=== PATIENT | male | born 1950 | race Caucasian/White ===

== ENCOUNTER 2018-07-02 12:06 | Emergency (ER) | payer OTHER, MEDICARE, SELFPAY ==
[2018-07-02 12:21] VITALS: BP 136/75; PULSE 70; RESP 18; TEMP 36.5; O2SAT 97; BMI 35.2
--- NOTE | 2018-07-02 12:31 | DI.RAD.S_ITS ---
PROCEDURE: XR CHEST 2V INDICATIONS: productive cough TECHNIQUE: 2 views of the chest were acquired. COMPARISON: None. FINDINGS: Surgical changes and devices: None. Lungs and pleura: Vague increased density appears to be present at the left lung base without lobar consolidation. No large effusion or pneumothorax is evident. Mediastinum: Mediastinal contours are normal. Heart size is normal. Bones and chest wall: No suspicious bony abnormalities. Soft tissues appear unremarkable. IMPRESSION: Possible developing left basilar pneumonia. Please correlate clinically. Dictated by: Familia Montalvo M.D. on 07/02/2018 at 12:16 Approved by: Familia Montalvo M.D. on 07/02/2018 at 12:18
--- NOTE | 2018-07-02 12:35 | ED_ITS ---
HPI - URI/Sore Throat <BELINDA Arevalo - Last Filed: 07/02/18 15:30> General Chief Complaint: Upper Respiratory Symptoms Stated Complaint: thinks he has bronchitis Time Seen by Provider: 07/02/18 12:21 Source: patient Mode of arrival: ambulatory Limitations: no limitations History of Present Illness HPI Narrative: The patient is a 68-year-old male former smoker with history of pneumonia who presents with a chief complaint of a productive cough for 3 days. He states he started with a sore throat and nasal congestion, developed postnasal drip and now has a productive cough. He complains of wheezing. He has tried using his inhalers, [id number] Robitussin, and take Sudafed for his allergies. He denies any fevers nausea vomiting diarrhea or abdominal pain. he states he is concerned because a few years ago he had a cough like this, that later developed into pneumonia. Related Data Previous Rx's Medication Instructions Recorded doxycycline hyclate 100 mg PO BID #20 cap 07/02/18 Allergies Allergy/AdvReac Type Severity Reaction Status Date / Time No Known Drug Allergies Allergy Verified 07/02/18 12:21 Review of Systems <BELINDA Arevalo - Last Filed: 07/02/18 15:30> Review of Systems GENERAL: Denies chills, fatigue, malaise, fever, sweats. HEENT: See HPI RESPIRATORY: See HPI CARDIOVASCULAR: Denies chest pain, palpitations, orthopnea, edema, GASTROINTESTINAL: Denies nausea, vomiting, abdominal pain, diarrhea, constipation, melena. : Denies dysuria, frequency, incontinence, hematuria, urinary retention. MUSCULOSKELETAL: denies weakness, joint pain, or bony pain SKIN: Denies rash, skin lesions, or other NEUROLOGIC: Denies weakness, headache, numbness, change in speech, confusion, seizures, incoordination. PSYCHIATRIC: No concerning psychosocial issues. 12 point review of systems is negative except for those stated above PFSH <BELINDA Arevalo - Last Filed: 07/02/18 15:30> Medical History (Updated 07/02/18 @ 13:32 by BELINDA Arevalo) History of pneumonia (Acute) Obesity (Acute) Social History (Updated 07/02/18 @ 13:30 by BELINDA Arevalo) Smoking Status: Former smoker Social History (Updated 07/02/18 @ 13:30 by BELINDA Arevalo) Smoking Status: Former smoker Exam <BELINDA Arevalo - Last Filed: 07/02/18 15:30> Narrative Exam Narrative: GENERAL: This is a well-nourished, well-developed patient, in no acute distress HEAD: Atraumatic. Normocephalic. No temporal or scalp tenderness. EYES: Pupils equal round and reactive. Extraocular motions intact. No scleral icterus. No injection or drainage. ENT: Nose without bleeding, purulent drainage or septal hematoma. Throat without erythema, tonsillar hypertrophy or exudate. Uvula midline. Airway patent. cobblestoning noted. NECK: Trachea midline. No JVD or lymphadenopathy. Supple, nontender, no meningeal signs. CARDIOVASCULAR: Regular rate and rhythm RESPIRATORY: Diffuse expiratory wheeze on auscultation. No increased respiratory effort. No accessory muscle use. No stridor. No crackles. GASTROINTESTINAL: Abdomen soft, non-tender, nondistended. No hepato- splenomegaly, or palpable masses. No guarding. EXTREMITIES: No clubbing, cyanosis, or edema. No joint tenderness, effusion, or edema noted. BACK: Nontender without deformity or crepitance. No flank tenderness. NEURO: AOx3. SKIN: No rash or erythema. Initial Vital Signs Initial Vital Signs: Vital Signs Temperature 97.7 F 07/02/18 12:21 Pulse Rate 70 07/02/18 12:21 Respiratory Rate 18 07/02/18 12:21 Blood Pressure 136/75 07/02/18 12:21 Pulse Oximetry 97 07/02/18 12:21 <Jaya Stauffer DO - Last Filed: 07/02/18 18:31> Initial Vital Signs Initial Vital Signs: Vital Signs Temperature 97.7 F 07/02/18 12:21 Pulse Rate 70 07/02/18 12:21 Respiratory Rate 18 07/02/18 12:21 Blood Pressure 136/75 07/02/18 12:21 Pulse Oximetry 97 07/02/18 12:21 Course <BELINDA Arevalo - Last Filed: 07/02/18 15:30> Orders Ordered: ED Orders 07/02/18 12:31 XR chest 2V Stat 07/02/18 12:38 RT Consult Eval and Treat Now Discontinued Medications Albuterol/Ipratropium (Duoneb) 3 ml INH NOW ONE Stop: 07/02/18 12:32 Last Admin: 07/02/18 12:55 Dose: 3 ml Vital Signs - 8 hr 07/02/18 12:21 07/02/18 12:55 07/02/18 13:31 Temperature 97.7 F Pulse Rate 70 73 Respiratory Rate 18 14 Blood Pressure 136/75 Pulse Oximetry 97 98 98 07/02/18 13:42 Temperature 97.6 F Pulse Rate 77 Respiratory Rate 21 Blood Pressure 138/67 Pulse Oximetry 95 <Jaya Stauffer DO - Last Filed: 07/02/18 18:31> Orders Ordered: ED Orders 07/02/18 12:31 XR chest 2V Stat 07/02/18 12:38 RT Consult Eval and Treat Now Discontinued Medications Albuterol/Ipratropium (Duoneb) 3 ml INH NOW ONE Stop: 07/02/18 12:32 Last Admin: 07/02/18 12:55 Dose: 3 ml Vital Signs - 8 hr 07/02/18 12:21 07/02/18 12:55 07/02/18 13:31 Temperature 97.7 F Pulse Rate 70 73 Respiratory Rate 18 14 Blood Pressure 136/75 Pulse Oximetry 97 98 98 07/02/18 13:42 Temperature 97.6 F Pulse Rate 77 Respiratory Rate 21 Blood Pressure 138/67 Pulse Oximetry 95 MDM - URI/Sore Throat <BELINDA Arevalo - Last Filed: 07/02/18 15:30> Imaging Data Chest x-ray: Radiologist's impression: [address] [address] XRay Report Signed Patient: Damien Fishman [facility]#: [id number] : 9Acct:[id number] Age/Sex: 68 / MDate of Service: 07/02/18 Loc: ED Accession Number: [id number] Procedure: XR chest 2V Ordering Provider: Susie Wallace PROCEDURE: XR CHEST 2V INDICATIONS: productive cough TECHNIQUE: 2 views of the chest were acquired. COMPARISON: None. FINDINGS: Surgical changes and devices: None. Lungs and pleura: Vague increased density appears to be present at the left lung base without lobar consolidation. No large effusion or pneumothorax is evident. Mediastinum: Mediastinal contours are normal. Heart size is normal. Bones and chest wall: No suspicious bony abnormalities. Soft tissues appear unremarkable. IMPRESSION: Possible developing left basilar pneumonia. Please correlate clinically. Dictated by: Familia Montalvo M.D. on 07/02/2018 at 12:16 Approved by: Familia Montalvo M.D. on 07/02/2018 at 12:18 [facility] Narrative Medical decision making narrative: The patient is a 68-year-old male presents with a productive cough and wheezing. He is afebrile, lacks signs of systemic illness and is hemodynamically stable in the emergency department. He does have a developing pneumonia on chest x-ray. Thus I will initiate treatment with doxycycline. He received an albuterol nebulizer in the emergency department as well spacer training. I encouraged the patient follow up with primary care provider as soon as possible. Discussed return precautions to the emergency department including worsening shortness of breath, difficulty breathing or chest pain. Patient has no questions or concerns upon discharge. I did discuss using sunscreen while and doxycycline to help prevent sunburn. Discharge Plan Departure Patient Disposition: Home Clinical Impression: Community acquired pneumonia Qualifiers: Laterality: left Lung location: lower lobe of lung Qualified Code(s): J18.1 - Lobar pneumonia, unspecified organism Discharge Date/Time: 07/02/18 13:43 Interventions: ED Discharge Assessment Last Done: 07/02/18 13:42 Instructions: DI for Pneumonia -- Adult Activity Restrictions/Additional Instructions: I am starting treatment for pneumonia given your x-ray and symptoms. please follow up with primary care provider for re-evaluation in the next few days. Please come back to emergency department for any acute concerns such as chest pain shortness of breath etc. Please use your albuterol inhaler at home as needed with spacer was provided. Please rest and use [id number] medications as needed. Prescriptions: New doxycycline hyclate 100 mg capsule 100 mg PO BID Qty: 20 RF: 0 Referrals: Shabnam Cota ARNP [Primary Care Provider] - <Jaya Stauffer DO - Last Filed: 07/02/18 18:31> Cosign ED Attending Domoature Attestation: I was immediately available in the department for consultation. Documentation has been reviewed. I agree with assessment and plan.
[2018-07-02 12:55] VITALS: PULSE 73; RESP 14; O2SAT 98
[2018-07-02] MEDS: ALBUTEROL/IPRATROPIUM 3 ML AMPUL INH (12:55)
[2018-07-02 13:31] VITALS: O2SAT 98
[2018-07-02 13:42] VITALS: BP 138/67; PULSE 77; RESP 21; TEMP 36.4; O2SAT 95
== END 2018-07-02 13:43 | disposition home or self-care (01) ==
PROVIDERS: Emergency Provider Nurse Practitioner Family; PCP Nurse Practitioner Adult Health
DX: J18.1 Lobar pneumonia, unspecified organism (principal)
CPT/HCPCS: 71046; 94640; 99282; 99283